=== PATIENT | male | born 1950 | race Caucasian/White ===

== ENCOUNTER 2017-08-30 16:16 | Emergency (ER) | payer BC ==
[2017-08-30 18:31] VITALS: BP 135/78
--- NOTE | 2017-08-30 23:07 | ED ---
Headache - HPI Summary HPI Summary: Patient presents to the ED with concern over a "different feeling" over the temporal area of his head which began about 2 hours prior to arrival. He denies pain. Denies numbness, tingling. He states he called his MD office and the RN told him to come here. He states he was concerned at the time, but after arrival he feels "silly" for being here as the feeling is not pain and he has no other symptoms. Denies N/V/C/D, memory loss, LOC, visual changes including blurry vision or double vision, MALHOTRA, weakness, facial droop, slurred speech or other symptoms. He denies any cardiac issues. Hx of migraines, but states this does not feel the same. - History Of Current Complaint Chief Complaint: EDHeadache Stated Complaint: HEAD PAIN Time Seen by Provider: 08/30/17 17:22 Hx Obtained From: Patient Onset/Duration: Sudden Onset Initially Headache Was: Initial Pain Scale(0-10)= - 1 Currently Pain Is: Current Pain Scale(0-10)= - 0 Timing: Constant Character: Unable To Describe Location of Headache: Temporal - left Aggravating Factor: Nothing Allevating Factors: Nothing Associated Signs And Symptoms: Negative - Risk Factors SAH Risk Factors: Negative Meningitis Risk Factors: Negative SDH Risk Factors: Negative Temporal Arteritis Risk Factors: Negative - Allergies/Home Medications Allergies/Adverse Reactions: Allergies Allergy/AdvReac Type Severity Reaction Status Date / Time Diclofenac [From Arthrotec] Allergy Unknown Verified 08/30/17 16:23 Reaction Details Misoprostol [From Arthrotec] Allergy Unknown Verified 08/30/17 16:23 Reaction Details PMH/Surg Hx/FS Hx/Imm Hx Previously Healthy: Yes Endocrine/Hematology History: Denies: Hx Diabetes Cardiovascular History: Denies: Hx Hypertension, Hx Pacemaker/ICD History: Denies: Hx Renal Disease Sensory History: Denies: Hx Hearing Aid Psychiatric History: Denies: Hx Panic Disorder - Surgical History Surgery Procedure, Year, and Place: CHEST SURGERY, TONSILECTOMY - Immunization History Hx Pertussis Vaccination: No Immunizations Up to Date: Unable to Obtain/Confirm Infectious Disease History: No Infectious Disease History: Denies: Traveled Outside the [place] in Last 30 Days - Social History Occupation: Employed Full-time Lives: With Family Alcohol Use: Daily Alcohol Amount: 1-2 glasses wine Hx Substance Use: Yes Substance Use Type: Reports: Marijuana Smoking Status (MU): Never Smoked Tobacco Review of Systems Constitutional: Negative Negative: Fever, Chills, Fatigue ENT: Negative Cardiovascular: Negative Negative: Palpitations, Chest Pain Negative: Shortness Of Breath, Cough Genitourinary: Negative Positive: no symptoms reported, see HPI Neurological: Other - feeling in the left temporal area Psychological: Normal All Other Systems Reviewed And Are Negative: Yes Physical Exam Triage Information Reviewed: Yes Vital Signs On Initial Exam: Initial Vitals Temp Pulse Resp BP Pulse Ox 97.7 F 87 20 138/85 97 08/30/17 16:18 08/30/17 16:18 08/30/17 16:18 08/30/17 16:18 08/30/17 16:18 Vital Signs Reviewed: Yes Appearance: Positive: Well-Appearing, Well-Nourished Skin: Positive: Warm, Skin Color Reflects Adequate Perfusion Head/Face: Positive: Normal Head/Face Inspection Eyes: Positive: Normal, JV Neck: Positive: Supple, No Lymphadenopathy Respiratory/Lung Sounds: Positive: Clear to Auscultation, Breath Sounds Present Cardiovascular: Positive: Normal, RRR, Pulses are Symmetrical in both Upper and Lower Extremities Musculoskeletal: Positive: Normal, Strength/ROM Intact Neurological: Positive: Sensory/Motor Intact, Alert, Oriented to Person Place, Time, Speech Normal Psychiatric: Positive: Normal AVPU Assessment: Alert - Wayne Coma Scale Coma Scale Total: 15 Diagnostics - Vital Signs Vital Signs Temp Pulse Resp BP Pulse Ox 08/30/17 18:29 97.7 F 72 18 135/78 98 08/30/17 16:18 97.7 F 87 20 138/85 97 - Laboratory Lab Statement: Any lab studies that have been ordered have been reviewed, and results considered in the medical decision making process. Headache Course/Dx - Course Course Of Treatment: Discussed with patient risks and benefits of CT scan. Also discussed possibilities of a strange feeling in the temporal area including temporal arteritis, migraine, TIA, stress, tension MALHOTRA or nerve stimulation. He states he would like to wait at this time and not obtain labs or imaging and will return if symptoms return. - Diagnoses Differential Diagnosis/HQI/PQRI: Migraine, Temporal Arteritis, Tension Headache Provider Diagnoses: Temporal headache Discharge - Discharge Plan Condition: Stable Disposition: HOME Referrals: Noah Bobo MD [Primary Care Provider] - Additional Instructions: Please follow up with Dr. Bobo's office If you develop any headaches, blurry vision, worsening temporal pain, or other concerning symptoms - return to the ED immediately.
== END 2017-08-30 18:29 | disposition home or self-care (01) ==
LOC: ED 16:16
DX: R51 Headache (principal)
CPT/HCPCS: 99282

== ENCOUNTER 2019-04-11 12:43 | Emergency (ER) | payer BC ==
--- OUTSIDE RECORDS SUMMARY | 2019-04-11 12:52 | XMS REPORT | Continuity of Care Document ---
:1950 External Reference #:[id number] Author Name Ce Echols O.D. Address [address] [place] [address] Care Team Providers Name Role Phone Noah Bobo M.D. Primary Care Physician Unavailable Payers Date Identification Numbers Payment Provider Subscriber Policy Number: [id number] [place] Plan Gary Castillo PayID: [id number] [address] [place] [address] Problems Active Problems Provider Date Hyperchloremia Onset: Hypothyroidism Onset: Vitreous degeneration Ce Echols O.D. Onset: 08/17/2015 Rosacea Onset: Chalazion Maurisio Nicholson M.D. Onset: 08/22/2015 Nuclear senile cataract Maurisio Nicholson M.D. Onset: 08/22/2015 Myopia Ce Echols O.D. Onset: 10/19/2015 Regular astigmatism Ce Echols O.D. 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 Onset: 2015 Fourth nerve palsy Maurisio Nicholson M.D. Onset: 05/15/2016 Epiretinal membrane Maurisio Nicholson M.D. Onset: 05/15/2016 Presbyopia Ce Echols O.D. Onset: 07/13/2016 Retinal detachment Maurisio Nicholson M.D. 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 ETOH Use Consumes 1-2 glasses of wine per day Tobacco Use Start: Unknown Patient has never smoked Recreational Drug Use Never Used Drugs Smoking Status Reviewed: 04/10/19 Patient has never smoked Allergies, Adverse Reactions, Alerts Description No Known Drug Allergies Medications Active Medications SIG Qnty Indications Ordering Provider Date Minocycline HCL Unknown 50mg Capsules Levothyroxine Sodium Unknown 50mcg Tablets Viagra take 1 tablet by Unknown 100mg Tablets mouth once daily as directed Zolmitriptan Unknown 5mg Tablets Prilosec Unknown 20mg Capsules Nifedipine ER Jackie Boboyd A 30mg Tablets M.D. ER 24HR Rosuvastatin Calcium take 1 tablet by Unknown 10mg mouth at bedtime Tablets History Medications Erythromycin Apply to surgical 1Tube H00.14 Maurisio PinedaMariann 08/22/2015 - 5mg/GM site three times Zana Nicholson 10/18/2015 Ointment a day Erythromycin Apply To Affected 1Tubes Anna CMariann 08/16/2015 - 5mg/GM Area Left Eye Rupali Hernandez 08/21/2015 Ointment Pravastatin Sodium Unknown - 40mg 08/06/2018 Tablets Nifedipine ER Unknown - 30mg 05/14/2016 Tablets ER 24HR Vitamin D every day Unknown - 2000Unit 01/28/2018 Tablets Vital Signs Date Vital Result Comment 05/28/2016 4:32pm BP Systolic 119 mmHg BP Diastolic 76 mmHg Heart Rate 73 /min Respiratory Rate 16 /min Procedures Date Code Description Status 02/05/2019 50635 Scanning Computerized Opthalmic Diagnostic Posterior Seg Completed Retina 02/05/2019 21400 Est Patient Comprehensive Exam Completed 08/07/2018 58005 Est Patient Comprehensive Exam Completed 02/04/2018 37052 Scanning Computerized Opthalmic Diagnostic Posterior Seg Completed Retina 02/04/2018 94175 Determination Of Refractive State Completed 02/04/2018 31400 Est Patient Comprehensive Exam Completed 08/02/2017 18311 Est Patient Intermediate Exam Completed 12/27/2016 04721 Scanning Computerized Opthalmic Diagnostic Posterior Seg Completed Retina 12/27/2016 25582 Est Patient Comprehensive Exam Completed 06/14/2016 21332 Determination Of Refractive State Completed 05/28/2016 08869 Prophylaxis Of Retinal Detachment, Photocoagulation Completed 05/15/2016 50365 Est Patient Comprehensive Exam Completed 10/19/2015 44454 Determination Of Refractive State Completed 08/22/2015 54372 Est Patient Comprehensive Exam Completed 08/17/2015 95284 Est Patient Intermediate Exam Completed 03/11/2014 53933 Determination Of Refractive State Completed 03/11/2014 69875 Est Patient Comprehensive Exam Completed 04/25/2011 14761 Determination Of Refractive State Completed 04/25/2011 87553 New Patient Comprehensive Exam Completed Encounters Type Date Location Provider Dx Diagnosis Office Visit 09/26/2015 Maurisio Nicholson, Maurisio Nicholson, H00.14 Chalazion left 4:15p , pc M.DMariann upper eyelid H43.811 Vitreous degeneration, right eye H25.13 Age-related nuclear cataract, bilateral Plan of Treatment 04/10/2019 - Ce Echols O.D.H43.812 Vitreous degeneration, left eyeComments :Smoking can increase the risk of developing or worsening any eye related disease, as well as affect your overall health. If you are a smoker, we strongly recommend that you quit.If you are not a smoker, we strongly recommend that you do not start. You have a Posterior Vitreous Detachment in your left eye. If you have any changes in your floaters or flashing lights, please contact this office.Follow up:2 weeks DFE or sooner as needed
[2019-04-11 13:00] VITALS: BP 121/74
--- NOTE | 2019-04-11 13:42 | UC ---
Ear Complaint HPI - HPI Summary HPI Summary: "right ear is clogged with wax"-- - History of Current Complaint Chief Complaint: UCEar Stated Complaint: EAR PAIN Time Seen by Provider: 04/11/19 13:30 Hx Obtained From: Patient Onset/Duration: Gradual Onset, Lasting Days, Still Present Pain Intensity: 0 Pain Scale Used: 0-10 Numeric Aggravating Factors: Nothing Alleviating Factors: Nothing Associated Signs/Symptoms: Positive: Hearing Loss - Allergies/Home Medications Allergies/Adverse Reactions: Allergies Allergy/AdvReac Type Severity Reaction Status Date / Time diclofenac [From Arthrotec] Allergy Unknown Verified 04/11/19 13:04 Reaction Details misoprostol [From Arthrotec] Allergy Unknown Verified 04/11/19 13:04 Reaction Details cephalopods Allergy GI Upset Uncoded 04/11/19 13:05 Home Medications: Home Medications Minocycline HCl 50 mg PO DAILY 04/11/19 [History Confirmed 04/11/19] Pseudoephedrine HCl [Sudafed 12 Hour] 1 tab PO DAILY PRN 04/11/19 [History Confirmed 04/11/19] Rosuvastatin (NF) [Crestor (NF)] 1 tab PO DAILY 04/11/19 [History Confirmed ] PMH/Surg Hx/FS Hx/Imm Hx Previously Healthy: No Endocrine History: Hypothyroidism Cardiovascular History: Hypertension - Surgical History Surgical History: Yes Surgery Procedure, Year, and Place: CHEST SURGERY, TONSILECTOMY, right thumb repair, kidney stone lithotripsy, - Family History Known Family History: Positive: None - Social History Occupation: Employed Full-time Lives: With Family Alcohol Use: Weekly Alcohol Amount: 1-2 glasses wine Substance Use Type: Marijuana Smoking Status (MU): Never Smoked Tobacco Review of Systems All Other Systems Reviewed And Are Negative: Yes Constitutional: Positive: Negative Skin: Positive: Negative Eyes: Positive: Negative ENT: Positive: Ear Ache - right ear feels clogged with wax Respiratory: Positive: Negative Cardiovascular: Positive: Negative Gastrointestinal: Positive: Negative Genitourinary: Positive: Negative Motor: Positive: Negative Neurovascular: Positive: Negative Musculoskeletal: Positive: Negative Neurological: Positive: Negative Psychological: Positive: Negative Is Patient Immunocompromised?: No Physical Exam Triage Information Reviewed: Yes Appearance: Well-Appearing, No Pain Distress, Well-Nourished Vital Signs: Initial Vital Signs Temp 97.8 F 04/11/19 12:54 Pulse 82 04/11/19 12:54 Resp 18 04/11/19 12:54 BP 121/74 04/11/19 12:54 Pulse Ox 97 04/11/19 12:54 Vital Signs Reviewed: Yes Eye Exam: Normal Eyes: Positive: Conjunctiva Clear ENT Exam: Normal ENT: Positive: Normal ENT inspection, Hearing grossly normal, Pharynx normal, TMs normal - left then right wnl after irragation. Negative: Nasal congestion , Trismus, Muffled voice, Hoarse voice, Dental tenderness, Sinus tenderness Dental Exam: Normal Neck exam: Normal Neck: Positive: Supple, Nontender, No Lymphadenopathy Respiratory Exam: Normal Respiratory: Positive: Chest non-tender, No respiratory distress, No accessory muscle use Cardiovascular Exam: Normal Cardiovascular: Positive: RRR, Brisk Capillary Refill Musculoskeletal Exam: Normal Musculoskeletal: Positive: Strength Intact, ROM Intact, No Edema Neurological Exam: Normal Neurological: Positive: Alert, Muscle Tone Normal Psychological Exam: Normal Skin Exam: Normal Ear Complaint Course/Dx - Course Course Of Treatment: right ear irragated, patient reports symptoms resolved tolerated irragation well - Differential Dx/Diagnosis Provider Diagnosis: Impacted cerumen, right ear Discharge - Sign-Out/Discharge Documenting (check all that apply): Patient Departure All imaging exams completed and their final reports reviewed: No Studies - Discharge Plan Condition: Stable Disposition: HOME Patient Education Materials: Cerumen Impaction (ED) Referrals: Noah Bobo MD [Primary Care Provider] - If Needed - Billing Disposition and Condition Condition: STABLE Disposition: Home
== END 2019-04-11 14:03 | disposition home or self-care (01) ==
LOC: UCEAST 12:43
DX: H61.21 Impacted cerumen, right ear (principal); I10 Essential (primary) hypertension; Z88.8 Allergy status to other drugs, medicaments and biological substances
CPT/HCPCS: 99212; G0463

== ENCOUNTER 2019-05-11 13:44 | Observation (INO) | payer BC ==
--- OUTSIDE RECORDS SUMMARY | 2019-05-11 14:16 | XMS REPORT | Continuity of Care Document ---
:1950 External Reference #:[id number] Author Name Maurisio Nicholson M.D. Address [address] [facility] [place] [address] Care Team Providers Name Role Phone Noah Bobo M.D. 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 ETOH Use Consumes 1-2 glasses of wine per day Tobacco Use Start: Unknown Patient has never smoked Recreational Drug Use Never Used Drugs Smoking Status Reviewed: 04/27/19 Patient has never smoked Allergies, Adverse Reactions, Alerts Active Allergies Reaction Severity Comments Date Arthrotec 04/27/2019 Inactive Allergies NKDA 08/22/2015 Medications Active Medications SIG Qnty Indications Ordering Provider Date Minocycline HCL Unknown 50mg Capsules Levothyroxine Sodium Unknown 50mcg Tablets Viagra take 1 tablet by Unknown 100mg Tablets mouth once daily as directed Zolmitriptan Unknown 5mg Tablets Prilosec Unknown 20mg Capsules DR Rosuvastatin Calcium take 1 tablet by Unknown 10mg mouth at bedtime Tablets History Medications Erythromycin Apply to surgical 1Tube H00.14 Maurisio JMariann 08/22/2015 - 5mg/GM site three times Zana Nicholson 10/18/2015 Ointment a day Erythromycin Apply To Affected 1Tubes Anna Dylon 08/16/2015 - 5mg/GM Area Left Eye Rupali Hernandez 08/21/2015 Ointment Pravastatin Sodium Unknown - 40mg 08/06/2018 Tablets Nifedipine ER Unknown - 30mg 05/14/2016 Tablets ER 24HR Nifedipine ER Noah Bobo A - 30mg MMariannDMariann 04/20/2019 Tablets ER 24HR Vitamin D every day Unknown - 2000Unit 01/28/2018 Tablets Vital Signs Date Vital Result Comment 05/28/2016 4:32pm BP Systolic 119 mmHg BP Diastolic 76 mmHg Heart Rate 73 /min Respiratory Rate 16 /min Procedures Date Code Description Status 04/10/2019 41854 Est Patient Intermediate Exam Completed 02/05/2019 52838 Scanning Computerized Opthalmic Diagnostic Posterior Seg Completed Retina 02/05/2019 99252 Est Patient Comprehensive Exam Completed 08/07/2018 62247 Est Patient Comprehensive Exam Completed 02/04/2018 93504 Scanning Computerized Opthalmic Diagnostic Posterior Seg Completed Retina 02/04/2018 01607 Determination Of Refractive State Completed 02/04/2018 92971 Est Patient Comprehensive Exam Completed 08/02/2017 57921 Est Patient Intermediate Exam Completed 12/27/2016 78738 Scanning Computerized Opthalmic Diagnostic Posterior Seg Completed Retina 12/27/2016 64665 Est Patient Comprehensive Exam Completed 06/14/2016 17809 Determination Of Refractive State Completed 05/28/2016 78712 Prophylaxis Of Retinal Detachment, Photocoagulation Completed 05/15/2016 74352 Est Patient Comprehensive Exam Completed 10/19/2015 73375 Determination Of Refractive State Completed 08/22/2015 30892 Est Patient Comprehensive Exam Completed 08/17/2015 63885 Est Patient Intermediate Exam Completed 03/11/2014 35567 Determination Of Refractive State Completed 03/11/2014 14975 Est Patient Comprehensive Exam Completed 04/25/2011 39843 Determination Of Refractive State Completed 04/25/2011 89663 New Patient Comprehensive Exam Completed Encounters Type Date Location Provider Dx Diagnosis Office Visit 09/26/2015 Maurisio Nicholson, Maurisio Nicholson, H00.14 Chalazion left 4:15p , pc [place].Jodi upper eyelid H43.811 Vitreous degeneration, right eye H25.13 Age-related nuclear cataract, bilateral Plan of Treatment 04/27/2019 - Maurisio Nicholson M.D.H43.812 Vitreous degeneration, left eyeComments:Smoking can increase the risk of developing or [...] or flashing lights, please contact this office.Follow up:6 Month Follow Up Diagnostic Refraction OCT MAC You can expect to have your eyes dilated at your next visit. If Dr. Nicholson orders any additional testing, it may require extra time. We recommend that you bring sunglasses, as dilation drops often make you light sensitive until they wear off. We always recommend you bring someone to drive you home if you are uncomfortable driving with your eyes dilated.If you have any questions before your next visit, feel free to call our office at .H35.192 Puckering of macula, right eyeComments:A Macular Pucker is a wrinkling of the retina tissue. It can cause distortion in your vision. Pleasecontact the office if you notice any changes or new distortion in your vision.H33.8 Other retinal detachmentsComments:The area in the left retina that was treated for a hole/ tear looks stable. I do not see any new holes or tears in your left retina at this time. If you notice any new flashes of light or a sudden onset of floaters in your vision, please give our office a call immediately to schedule an appointment.
[2019-05-11 14:30] LABS: ABS Basophils 0.1 10^3/ul (0-0.2); ABS Eosinophils 0.1 10^3/ul (0-0.6); ABS Lymphocytes 1.7 10^3/ul (1.0-4.8); ABS Monocytes 0.3 10^3/ul (0-0.8); ABS Neutrophils 3.8 10^3/ul (1.5-7.7); Eosinophil % 1.6 %; Hematocrit 47 % (42-52); Hemoglobin 15.8 g/dL (14.0-18.0); Lymphocyte % 28.7 %; Mean Corpuscular HGB Conc 34 g/dL (31-36); Mean Corpuscular Hemoglobin 32 pg (27-31); Mean Corpuscular Volume 94 fL (80-94); Mean Platelet Volume 7.5 fL (7.4-10.4); Platelet Count 249 10^3/uL (150-450); Red Blood Count 5.01 10^6 /uL (4.18-5.48); Red Cell Distribution Width 13 % (10-15)
[2019-05-11 14:48] LABS: Albumin 4.5 g/dL (3.2-5.2); Albumin/Globulin Ratio 1.8 (1-3); BUN/Creatinine Ratio 15.1 (8-20); Calcium 9.5 mg/dL (8.6-10.3); EGFR African American 98.4 (>60); EGFR Non-African American 81.3 (>60); Globulin 2.5 g/dL (2-4); Potassium 4.2 mmol/L (3.5-5.0); Total Bilirubin 0.6 mg/dL (0.2-1.0)
[2019-05-11 15:01] LABS: INR 0.92 (0.82-1.09)
--- NOTE | 2019-05-11 17:02 | ED ---
Palpitations / Dysrhythmia - HPI Summary HPI Summary: The patient is a 68 y/o M presenting to [facility] with a chief complaint of sudden onset intermittent feeling of irregular cardiac rhythm with skipped beats starting three days ago. He reports that when the symptoms began, he wanted to wait to see if the symptoms would dissipate. The next morning, his symptoms were still present, so he called his PCP and was told to come here. However, he waited two days after that to come to the ED since the symptoms were still present. Today, while on his way to the ED, he stopped at the store and had an episode of lightheadedness and dizziness that resolved after a few minutes of rest. He denies extremity or jaw numbness, or any chest pain, pressure, tightness, or heaviness. He is not currently having the irregular rhythm sensation. He notes that he has had a head cold for the last two weeks with taking daily Sudafed with last dose at 0900 this morning. Hx thyroid disease, HLD. Surgical hx of chest surgery. Last stress test was 5 years ago. Has been checked by PCP for aneurysm a few years ago. FHx CT in father and grandmother. Nonsmoker, weekly EtOH, no substance use. - History of Current Complaint Chief Complaint: EDChestPainROMI Time Seen by Provider: 05/11/19 16:51 Hx Obtained From: Patient Onset/Duration: Sudden Onset, Lasting Days, Still Present Timing: Intermittent Episodes Lasting: - minutes Severity Initially: Moderate Severity Currently: Moderate Character: Irregular, Skipped Beats Aggravating: Nothing Alleviating: Nothing Associated Signs & Symptoms: Lightheadedness - resolved, Dizzy - resolved - Allergy/Home Medications Allergies/Adverse Reactions: Allergies Allergy/AdvReac Type Severity Reaction Status Date / Time cephalopods Allergy GI Upset Uncoded 05/11/19 14:02 PMH/Surg Hx/FS Hx/Imm Hx Endocrine/Hematology History: Reports: Hx Thyroid Disease Denies: Hx Diabetes Cardiovascular History: Denies: Hx Hypertension, Hx Pacemaker/ICD Respiratory History: Denies: Hx Pneumonia History: Denies: Hx Renal Disease Sensory History: Denies: Hx Hearing Aid Psychiatric History: Denies: Hx Panic Disorder - Surgical History Surgery Procedure, Year, and Place: CHEST SURGERY, TONSILECTOMY, right thumb repair, kidney stone lithotripsy, Infectious Disease History: No Infectious Disease History: Denies: Traveled Outside the [place] in Last 30 Days - Family History Known Family History: Positive: Cardiac Disease - CT in father and grandmother - Social History Alcohol Use: Weekly Alcohol Amount: 1-2 glasses wine Hx Substance Use: Yes Substance Use Type: Reports: Marijuana Smoking Status (MU): Never Smoked Tobacco Do You Chew or Dip Tobacco: No Have You Chewed or Dipped Tobacco in the LAST YEAR: No Have You Smoked in the Last Year: No Review of Systems Negative: Fever, Chills Positive: Palpitations - irregular rhythm. Negative: Chest Pain - no pressure, tightness, Negative: Shortness Of Breath, Cough Negative: Abdominal Pain, Vomiting, Nausea Negative: dysuria, hematuria Negative: Myalgia, Edema Negative: Rash Neurological: Other - dizziness and lightheadedness resolved Positive: Weakness - generalized. Negative: Numbness - in extremities or jaw All Other Systems Reviewed And Are Negative: Yes Physical Exam - Summary Physical Exam Summary: Constitutional: Well-developed, Well-nourished, Alert. (-) Distressed Skin: Warm, Dry HENT: Normocephalic; Atraumatic Eyes: Conjunctiva normal Neck: Musculoskeletal ROM normal neck. (-) JVD, (-) Stridor, (-) Tracheal deviation Cardio: Rhythm regular, rate normal, Heart sounds normal; Intact distal pulses; The pedal pulses are 2+ and symmetric. Radial pulses are 2+ and symmetric. (-) Murmur Pulmonary/Chest wall: Effort normal. (-) Respiratory distress, (-) Wheezes, (-) Rales Abd: Soft, (-) tenderness, (-) Distension, (-) Guarding, (-) Rebound Musculoskeletal: (-) Edema Lymph: (-) Cervical adenopathy Neuro: Alert, Oriented x3 Psych: Mood and affect Normal Triage Information Reviewed: Yes Vital Signs On Initial Exam: Initial Vitals Temp Pulse Resp BP Pulse Ox 97.9 F 86 16 162/100 96 05/11/19 13:57 05/11/19 13:57 05/11/19 13:57 05/11/19 13:57 05/11/19 13:57 Vital Signs Reviewed: Yes Diagnostics - Vital Signs Vital Signs Temp Pulse Resp BP Pulse Ox 05/11/19 16:33 61 15 98 05/11/19 16:26 62 14 151/89 98 05/11/19 13:57 97.9 F 86 16 162/100 96 - Laboratory Lab Results: Lab Results 05/11/19 05/11/19 05/11/19 Range/Units 14:21 14:21 14:22 WBC 6.0 (3.5-10.8) 10^3/uL RBC 5.01 (4.18-5.48) 10^6 /uL Hgb 15.8 (14.0-18.0) g/dL Hct 47 (42-52) % MCV 94 (80-94) fL MCH 32 H (27-31) pg MCHC 34 (31-36) g/dL RDW 13 (10-15) % Plt Count 249 (150-450) 10^3/uL MPV 7.5 (7.4-10.4) fL Neut % (Auto) 63.7 % Lymph % (Auto) 28.7 % [place] % (Auto) 5.0 % Eos % (Auto) 1.6 % Baso % (Auto) 1.0 % Absolute Neuts (auto) 3.8 (1.5-7.7) 10^3/ul Absolute Lymphs (auto) 1.7 (1.0-4.8) 10^3/ul Absolute Monos (auto) 0.3 (0-0.8) 10^3/ul Absolute Eos (auto) 0.1 (0-0.6) 10^3/ul Absolute Basos (auto) 0.1 (0-0.2) 10^3/ul Absolute Nucleated RBC 0.0 10^3/ul Nucleated RBC % 0.0 INR (Anticoag Therapy) 0.92 (0.82-1.09) Sodium 137 (135-145) mmol/L Potassium 4.2 (3.5-5.0) mmol/L Chloride 104 (101-111) mmol/L Carbon Dioxide 25 (22-32) mmol/L Anion Gap 8 (2-11) mmol/L BUN 14 (6-24) mg/dL Creatinine 0.93 (0.67-1.17) mg/dL Est GFR ( Amer) 98.4 (>60) Est GFR (Non-Af Amer) 81.3 (>60) BUN/Creatinine Ratio 15.1 (8-20) Glucose 105 H (70-100) mg/dL Calcium 9.5 (8.6-10.3) mg/dL Total Bilirubin 0.60 (0.2-1.0) mg/dL AST 23 (13-39) U/L ALT 26 (7-52) U/L Alkaline Phosphatase 68 (34-104) U/L Troponin I 0.00 (<0.04) ng/mL Total Protein 7.0 (6.4-8.9) g/dL Albumin 4.5 (3.2-5.2) g/dL Globulin 2.5 (2-4) g/dL Albumin/Globulin Ratio 1.8 (1-3) Result Diagrams: 05/11/19 14:22 05/11/19 14:21 Lab Statement: Any lab studies that have been ordered have been reviewed, and results considered in the medical decision making process. - CT Chest/Abd/Pel CTA CT Interpretation Completed By: Radiologist Summary of CT Findings: No aortic aneurysm. Fatty infiltration of the liver. No intimal flap to suggest dissection. Diverticulosis. ED physician has reviewed this report. - EKG 1351 Cardiac Rate: NL - 68 BPM EKG Rhythm: Sinus Rhythm Summary of EKG Findings: RBBB. No STEMI. Re-Evaluation - Re-Evaluation First Eval Re-Evaluation Time: 18:50 Comment: I discussed results and admission with the patient. Course/Dx - Course Course Of Treatment: The patient is a 68 y/o M presenting to [facility] with a chief complaint of sudden onset intermittent feeling of irregular cardiac rhythm with skipped beats starting three days ago with persistence of symptoms since onset. He additionally had an episode of lightheadedness and dizziness that resolved after a few minutes of rest. He denies extremity or jaw numbness, or any chest pain, pressure, tightness, or heaviness. He is not currently having the irregular rhythm sensation. He notes that he has had a head cold for the last two weeks with taking daily Sudafed with last dose at 0900 this morning. Hx thyroid disease, HLD. Surgical hx of chest surgery. Last stress test was 5 years ago. Has been checked by PCP for aneurysm a few years ago. FHx CT in father and grandmother. Nonsmoker, weekly EtOH, no substance use. Upon physical exam, the patient exhibits no acute abnormalities. In the ED course, the patient was administered Omnipaque for CT and ASA. Blood work reveals MCH of 32 and glucose of 105. First and second troponins are 0.00. EKG reveals RBBB. Chest /Abd/Pel CTA impression: No aortic aneurysm. Fatty infiltration of the liver. No intimal flap to suggest dissection. Diverticulosis. I spoke with Dr. Trujillo at 1740, and she accepts the patient for admission. The patient is diagnosed with CP unspecified and exercise intolerance. He agrees with this plan and understands the need for admission at this time. - Diagnoses Provider Diagnoses: Chest pain, unspecified, Exercise intolerance - Physician Notifications Discussed Care Of Patient With: Piper Trujillo - hospitalist Time Discussed With Above Provider: 17:40 Instructed by Provider To: Other - I discussed the patient's case with Dr. Trujillo, and she accepts the patient for admission. Discharge - Sign-Out/Discharge Documenting (check all that apply): Patient Departure - Patient is accepted for admission by Dr. Trujillo. Patient Received Moderate/Deep Sedation with Procedure: No - Discharge Plan Condition: Stable Disposition: ADMITTED TO [facility] Referrals: Noah Bobo MD [Primary Care Provider] - - Billing Disposition and Condition Condition: STABLE Disposition: Admitted to [facility] - Attestation Statements Document Initiated by Scribe: Yes Documenting Scribe: Lynsey Ordaz Provider For Whom Patrice is Documenting (Include Credential): Dr. Julio Diehl MD Scribe Attestation: Lynsey Sylvester, scribed for Dr. Julio Diehl MD on 05/11/19 at 2016. Status of Scribe Document: Ready
[2019-05-11] MEDS ORDERED: Iohexol 350* (CONTRAST) 500 ML MDV IV ONE (17:27)
[2019-05-11] MEDS ORDERED: Aspirin 81 mg CHEW TAB* 81 MG TAB.CHEW PO ONE (18:35)
[2019-05-11] MEDS ORDERED: Acetaminophen TAB* 325 MG PO PRN (20:38)
[2019-05-11] MEDS ORDERED: Enoxaparin(*) 40 MG/0.4 ML SYR SUBCUT SCH (21:00)
[2019-05-11 21:20] LABS: TSH (Thyroid Stimulating Horm) 5.68 mcIU/mL (0.34-5.60)
--- NOTE | 2019-05-11 23:11 | HP ---
CC: Dr. Bobo * HISTORY AND PHYSICAL: DATE OF ADMISSION: 05/11/19 PRIMARY CARE PROVIDER: Dr. Bobo. CHIEF COMPLAINT: Chest pain/palpitations. HISTORY OF PRESENT ILLNESS: Gary Castillo is a 68-year-old male with history of dyslipidemia and hypothyroidism who stated that for the past 3 to 4 days he had been feeling strange. He stated that he does not have chest pain, but he feels palpitations occasionally. It originally happened on Saturday, 4 days ago. He stated that he would feel the palpitations that would last anywhere from seconds to minutes and then resolve. He denies any chest pain or shortness of breath associated with it, but it feels like his heart was going fast. He has been in his usual state of health and he has had regular exercise tolerance. He exercises every other day or so. He does pushups and other exercises are done as well as walking since he has problems with knee pain. Last night, he went to a republican, drank several glasses of wine, and slept probably 4 to 5 hours. Today, he only had a banana and a "few" nuts, and he went over to a store to garbage pick up man something in the midday, and on the way back, he felt lightheaded. He stated that he sat in the car for a while and that resolved and then he drove himself to the ED for evaluation. The patient is going to be placed on overnight observation for stress test. PAST MEDICAL HISTORY: 1. Hypothyroidism. 2. History of problems with peripheral circulation, likely due to Raynaud-like phenomenon, but the patient stated that he uses nifedipine during the winter months only as prescribed by his primary care provider. 3. Dyslipidemia. 4. Rosacea, on minocycline. 5. Migraine headaches. MEDICATIONS: Include: 1. Synthroid 50 mcg daily. 2. Zomig 5 mg on a p.r.n. basis. 3. Viagra 100 mg daily p.r.n. 4. Sudafed 1 tablet daily p.r.n. 5. Omeprazole 20 mg daily. 6. Rosuvastatin 10 mg daily. 7. Minocycline 50 mg daily. ALLERGIES: No known drug allergies. FAMILY HISTORY: Positive for mother who of consequences of COPD and father who of "a blood clot" from abdominal aortic aneurysm repair at the age of 68. 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 He denies any tobacco or drug use. He drinks alcohol occasionally. His daughter, Debbie Castillo, would be his surrogate. REVIEW OF SYSTEMS: Please see history of present illness. All the remaining 12 systems was reviewed with the patient and were otherwise negative. PHYSICAL EXAMINATION GENERAL: The patient is a pleasant 68-year-old male who is in no acute distress , alert, awake, and oriented x3. VITAL SIGNS: Blood pressure 137/85, heart rate 65 and regular, respiratory rate 17, oxygen saturation 97% on room air, temperature of 97.9. HEENT: Head: Atraumatic, normocephalic. Eyes: Pupils are equal and reactive to light and accommodation. Oropharynx clear. Mucosa moist. NECK: Supple. No JVD. No bruits bilaterally. RESPIRATORY: Clear to auscultation bilaterally. CARDIOVASCULAR: Regular rate and rhythm. No murmur. ABDOMEN: Soft, nontender. Bowel sounds present in all 4 quadrants. EXTREMITIES: There is no edema. Pulses are +2 bilaterally. There is no clubbing or cyanosis. NEURO EVALUATION: Speech is clear. Cranial nerves II through XII are grossly intact. Motor strength is 5/5 bilaterally. PSYCHIATRIC EVALUATION: Alert and oriented x3 with no evidence of anxiety or depression. DIAGNOSTIC STUDIES/LAB DATA: Laboratory data showed sodium of 137, potassium 4.2, chloride 104, carbon dioxide 25, BUN 14, creatinine 0.93. Liver function tests are unremarkable. Troponins is 0. White blood cell count 6.0, hemoglobin 15.8, hematocrit 47, platelets 249. The patient's TSH is pending at the time of dictation. The patient's EKG showed right bundle-branch block. There is no old EKG available for comparison. CT angiogram of chest, abdomen, and pelvis; impression: "No aortic aneurysm. Fatty infiltration of the liver, no intimal flap to suggest dissection, diverticulosis." ASSESSMENT AND PLAN: 1. In regards to the patient's palpitations and right bundle-branch block on his EKG. At this point, the patient is going to be admitted for overnight observation. I suspect the patient has arrhythmia either SVT or atrial fibrillation or aflutter. quality assurance monitor body is going to be continued and exercise cardiac stress test is going to be administered in the morning. 2. For his history of hypothyroidism, his Synthroid dose is going to be continued from home and I will obtain the patient's TSH. 3. For DVT prophylaxis, the patient is going to be placed on Lovenox subcutaneously. 4. The patient's code status is full. His surrogate is his daughter. TIME SPENT: Approximately 65 minutes was spent on admission of this patient, more than half that time was spent on [id number] with the patient during the interview and physical exam. [id number]/[facility] #: [id number] MIKAL
[2019-05-12] MEDS ORDERED: Levothyroxine TAB* 50 MCG TAB PO SCH (06:00)
[2019-05-12] MEDS ORDERED: Pantoprazole TAB * 40 MG TAB PO SCH (09:00)
[2019-05-12] MEDS ORDERED: Aspirin 81 mg CHEW TAB* 81 MG TAB.CHEW PO SCH (09:00)
[2019-05-12 09:12] VITALS: BP 127/80
[2019-05-12] MEDS ORDERED: ZOLMITRIPTAN 5 MG SL ONE (12:47)
[2019-05-12] MEDS ORDERED: SUMAtriptan TAB* 50 MG PO PRN (12:48)
[2019-05-12 13:55] LABS: Free T3 3.3 pg/mL (2.5-3.9)
[2019-05-12 13:56] LABS: Free T4 0.82 ng/dL (0.61-1.12)
--- NOTE | 2019-05-12 22:35 | DS ---
CC: Dr. Noah Bobo * DISCHARGE SUMMARY: DATE OF ADMISSION: 05/11/19 DATE OF DISCHARGE: 05/12/19 PRIMARY CARE PROVIDER: Dr. Noah Bobo DISPOSITION ON DISCHARGE: Home. CONDITION ON DISCHARGE: Good. PRIMARY DIAGNOSIS: Palpitations. SECONDARY DIAGNOSES: Include hypothyroidism, noted for peripheral circulation etiology like Raynaud's, although unconfirmed; dyslipidemia; rosacea; and migraine headaches. MEDICATIONS ON DISCHARGE: Unchanged from admission include: 1. Levothyroxine 25 mcg daily. 2. Zomig 5 mg sublingual daily as needed for migraine. 3. Sildenafil 100 mg daily as needed. 4. Pseudoephedrine 1 tab daily as needed. 5. Omeprazole 20 mg daily. 6. Rosuvastatin 10 mg daily. 7. Minocycline 50 mg daily. PERTINENT LABORATORY DATA: Troponin I 0.00 on 3 consecutive checks. TSH is 5.68 with a free T4 of 0.82 and free T3 of 3.3. PERTINENT IMAGING: CTA chest, abdomen, and pelvis: No aortic aneurysm, fatty infiltration of the liver and no intimal flap to suggest dissection. Diverticulosis. Lexiscan: Impression: No definite fixed or reversible perfusion defect. Assessment: Low risk, EF at 71%. HISTORY OF PRESENT ILLNESS AND HOSPITAL COURSE: This is a 68-year-old man with past medical history as noted in the history of present illness on the day of admission by Dr. Hua. Had several days of feeling strange with several episodes of palpitations that lasted intermittently, presented to the emergency room. These symptoms were in the context of having several glasses of wine the night before as well as decreased sleep 4 to 5 hours the night before, although he had been having these symptoms for several days. Additionally, it should be noted, his Synthroid was decreased to 25 mcg in March by his primary care provider and he does have a follow up in the next 1 to 2 weeks for repeat labs. There was some concern for cardiac etiology particularly in the setting of palpitations. He was admitted to the hospital, monitored on telemetry with no arrhythmia noted. Although, the patient also indicated he do not have any additional symptoms such as palpitations while hospitalized. The patient also denied chest pain at any point prior to or during his hospital stay. He did undergo a stress test which is negative as indicated above as well as a CTA chest, abdomen, and pelvis also negative. The patient felt well on day of discharge was discharged to follow up with his primary care physician. FOLLOWUP: 1. No clear etiology of presentation identified, however, can consider his lowered Synthroid dose if has recurrent symptoms and no other etiology identified at a later time. 2. He will be referred to Cardiology for Holter monitoring given nature of his symptoms and association with palpitations. 3. No other specific labs or vitals that need follow up. Reasons to return to the hospital included but not limited to recurrent or worsening symptoms including palpitations, chest pain, shortness of breath, nausea, vomiting, lightheadedness, loss of consciousness, near loss of consciousness was discussed with the patient. He acknowledged understanding. TIME SPENT: Greater than 60 minutes was spent on discharge of this patient, greater than half was spent [id number] with the patient. [id number]/[facility] #: [id number] MIKAL
== END 2019-05-12 14:54 | disposition home or self-care (01) ==
LOC: ED 13:44 → MEDTELE 20:38
PROVIDERS: ADMIT Internal Medicine; ATTEND Internal Medicine
DX: R00.2 Palpitations (principal); E03.9 Hypothyroidism, unspecified; E78.5 Hyperlipidemia, unspecified; L71.9 Rosacea, unspecified; G43.909 Migraine, unspecified, not intractable, without status migrainosus
CPT/HCPCS: 36415; 71275; 74174; 78452; 80053; 84439; 84443; 84481; 84484; 85025; 85610; 93005; 93017; 99284; A9270-GY; A9502; G0378; J1650; Q9967